=== PATIENT | female | born 1960 | race Caucasian/White ===

== ENCOUNTER 2017-12-08 20:24 | Emergency (ER) | payer MEDICAID, SELFPAY ==
[2017-12-08 20:26] VITALS: BP 208/108; PULSE 68; RESP 16; TEMP 35.6; O2SAT 98; BMI 27.1
[2017-12-08] MEDS: Ondansetron 4 MG/2 ML Vial IV (21:21)
[2017-12-08] MEDS: DiphenhydrAMINE 50 MG/ML Syringe 25 MG IV (21:21)
[2017-12-08] MEDS: Ketorolac 30 MG/ML Syringe IV (22:09)
[2017-12-08 22:12] VITALS: BP 151/83; PULSE 80; RESP 15; O2SAT 92
--- NOTE | 2017-12-08 23:10 | ED.VISSUMM ---
- ER Visit Summary Date of Service: 12/08/17 Chief Complaint: Acute headache History of Present Illness: The patient is a 57 F patient was undergoing stress tonight due to family issue. Her and her took a ride to relax. During the drive she had sudden onset of headache in her posterior area of her head. Associated nausea and vomiting. She is a history of migraine headaches but states this was more intense and seem to be more acute onset. She herself has never had an intracranial bleed nor is any family history. She is on no blood thinners. There is also no family history of any brain aneurysms. She denies any neurological symptoms. She denies any recent head trauma. Denies any fever or sinus congestion. Physical Examination: Middle-aged female vital signs are stable. Her initial blood pressure was 208/108. She is treated for hypertension. She is afebrile. She does not look septic or toxic. HEENT exam atraumatic. Pupils round reactive light. Extra motions are intact. No facial droop. Normal speech. Neck nontender. No lymphadenopathy. No meningismus. Able to touch chin to chest. Lungs clear to auscultation bilaterally. Heart regular rhythm no murmur. Abdomen soft nontender. She is moving all 4 extremities. They are neurovascularly intact. 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 Dorsi plantar flexion intact. Normal range of motion of both upper and lower extremities. Her neurologic exam is normal. Her NIH is 0. Fingertip to nose and heel to santiago all within normal limits. Back exam normal skin normal. Test Results: Due to the acute onset of her headache and her blood pressure she a CTA of the brain. No acute abnormality was noted this is read by the radiologist in [place]. No bleed or aneurysm is seen. Emergency Department Course and Treatment: Patient treated for her headache with IV fluids Zofran and Benadryl. She was getting some relief then was given IV Toradol. Treatment Plan: Repeat exam she is doing well at 2310. Neurologic exam is normal and her headache is much improved as is her blood pressure. Disposition: Discharge Impression: Acute cephalgia Acute on chronic hypertension Acute anxiety This note was generated with [employer] dictation software. It may contain incorrect words, spelling, and punctuation that were not noted in review of the chart prior to signing ED Disposition - Plan for ED Patient: Chief Complaint: Other, Pain/Inj Referrals: Mack Brooks MD [Primary Care Provider] -
--- NOTE | 2017-12-08 23:13 | ED.DCSUM_ITS ---
- ER Visit Summary Date of Service: 12/08/17 Chief Complaint: Acute headache History of Present Illness: The patient is a 57 F patient was undergoing stress tonight due to family issue. Her and her took a ride to relax. During the drive she had sudden onset of headache in her posterior area of her head. Associated nausea and vomiting. She is a history of migraine headaches but states this was more intense and seem to be more acute onset. She herself has never had an intracranial bleed nor is any family history. She is on no blood thinners. There is also no family history of any brain aneurysms. She denies any neurological symptoms. She denies any recent head trauma. Denies any fever or sinus congestion. Physical Examination: Middle-aged female vital signs are stable. Her initial blood pressure was 208/108. She is treated for hypertension. She is afebrile. She does not look septic or toxic. HEENT exam atraumatic. Pupils round reactive light. Extra motions are intact. No facial droop. Normal speech. Neck nontender. No lymphadenopathy. No meningismus. Able to touch chin to chest. Lungs clear to auscultation bilaterally. Heart regular rhythm no murmur. Abdomen soft nontender. She is moving all 4 extremities. They are neurovascularly intact. 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 Dorsi plantar flexion intact. Normal range of motion of both upper and lower extremities. Her neurologic exam is normal. Her NIH is 0. Fingertip to nose and heel to santiago all within normal limits. Back exam normal skin normal. Test Results: Due to the acute onset of her headache and her blood pressure she a CTA of the brain. No acute abnormality was noted this is read by the radiologist in [place]. No bleed or aneurysm is seen. Emergency Department Course and Treatment: Patient treated for her headache with IV fluids Zofran and Benadryl. She was getting some relief then was given IV Toradol. Treatment Plan: Repeat exam she is doing well at 2310. Neurologic exam is normal and her headache is much improved as is her blood pressure. Disposition: Discharge Impression: Acute cephalgia Acute on chronic hypertension Acute anxiety This note was generated with [employer] dictation software. It may contain incorrect words, spelling, and punctuation that were not noted in review of the chart prior to signing ED Disposition - Plan for ED Patient: Chief Complaint: Other, Pain/Inj Referrals: Mack Brooks MD [Primary Care Provider] -
--- NOTE | 2017-12-08 23:13 | ED.DEP ---
ED Disposition - Plan for ED Patient: Disposition: Home or Assisted Living Chief Complaint: Other, Pain/Inj Instructions: ED Cephalgia Unspecified Referrals: Mack Brooks MD [Primary Care Provider] - As Needed
[2017-12-08] MEDS: Rizatriptan Benzoate 10 MG Tablet PO (23:40)
[2017-12-08 23:41] VITALS: BP 144/66; PULSE 76; RESP 16; O2SAT 96
== END 2017-12-08 23:42 | disposition home or self-care (01) ==
PROVIDERS: Emergency Provider Emergency Medicine
DX: F41.1 Generalized anxiety disorder (principal); F43.0 Acute stress reaction; I10 Essential (primary) hypertension; R51 Headache
CPT/HCPCS: 70496; 96361; 96374; 96375; 99284; J7030; J7040; Q9967; A4216; J2405

== ENCOUNTER 2019-07-01 23:14 | Emergency (ER) | payer OTHER, SELFPAY ==
[2019-07-01 23:15] VITALS: BP 174/91; PULSE 82; RESP 18; TEMP 36.3; O2SAT 100; BMI 25.8
--- NOTE | 2019-07-01 23:41 | EKG12_ITS ---
Test Reason : SOB Blood Pressure : / mmHG Vent. Rate : 072 BPM Atrial Rate : 072 BPM P-R Int : 156 ms QRS Dur : 082 ms QT Int : 382 ms P-R-T Axes : 057 019 028 degrees QTc Int : 418 ms Normal sinus rhythm Nonspecific ST abnormality Abnormal ECG Confirmed by SAGRARIO RUIZ, TRINITY ([id number]), technical editor CARRIE JEAN ([id number]) on 07/03/2019 9:41:53 AM Referred By: NAREN Confirmed By:TRINITY ZABALA MD
--- NOTE | 2019-07-01 23:41 | RAD_ITS ---
STUDY: X-RAY CHEST REASON FOR EXAM: Female, 58 years old. INCREASED SOB TECHNIQUE: Single AP portable view of the chest. COMPARISON: None. FINDINGS: The lungs are clear and expanded. There is no demonstrated pleural abnormality. Normal size heart. Normal mediastinum and arnoldo. Normal visualized pulmonary arteries. Normal visualized aortic arch and descending thoracic aorta. Normal visualized thoracic spine. There is degenerative osteoarthritis of the bilateral shoulders. There is no demonstrated abnormality of the visualized soft tissue structures of the upper abdomen. RAD/Chest 1 View (Portable) IMPRESSION: Normal x-ray examination of the chest for age. Electronically Signed: Christiane Silva MD at 0:32 EDT , Service support ,
--- NOTE | 2019-07-01 23:44 | ED.RN ---
NO OLD EKGS IN MUSE
[2019-07-02] MEDS: 0.9% Normal Saline 1,000 ML 150 ML IV (00:09)
[2019-07-02] MEDS: MethylPREDNISolone 125 MG/2 ML Vial IV (00:09)
[2019-07-02 00:10] LABS: Absolute Lymphocyte Count 2.52 X10^3/uL (0.83-4.51); Absolute Neutrophil Count 2.8 X10^3/uL (2.0-7.7); Basophil# 0.06 X10^3/uL; Eosinophil# 0.23 X10^3/uL; Eosinophils% 3.7 % (0-5); Hematocrit 36.3 % (37-47); Hemoglobin 12.3 g/dL (12.0-15.0); Lymphocyte # 2.52 X10^3/ul (4.0); Lymphocyte % 40.6 % (19-41); Mean Corp Hgb Conc 33.9 g/dL (32-36); Mean Corpuscular Hgb 30.8 pg (27.0-32.0); Mean Corpuscular Volume 90.8 fL (81-99); Mean Platelet Vol. 10.3 fl (6.2-12.0); Monocyte# 0.59 X10^3/uL; Monocyte% 9.5 % (0-10); NRBC Flagged by Analyzer 0 % (0-5); Neutrophil # 2.78 X10^3/uL (2.7-7.7); Neutrophil % 44.9 % (47-70); Platelet Count 238 K/mm3 (150-450); RBC Distribution Width CV 12.4 % (11.6-14.6); RBC Distribution Width SD 40.1 fl (35.1-43.9); White Blood Count 6.2 K/mm3 (4.4-11.0)
[2019-07-02 00:27] LABS: Anion Gap 6 (5-15); BUN 21 mg/dL (7-18); BUN/Creat Ratio 27.2 RATIO (10-20); Calcium,Total 8.7 mg/dL (8.5-10.1); Chloride 107 mmol/L (98-107); Creatinine, Serum 0.77 mg/dL (0.55-1.02); EST Glomerular Filtration Rate 81 mL/min (>60); Est Glom Filt Rate - Afr Amer 98 mL/min (>60); Estimated Creatinine Clearance 73.64 ml/min; Glucose 98 mg/dL (74-106); Potassium 3.8 mmol/L (3.5-5.1); Sodium Level 140 mmol/L (136-145)
--- NOTE | 2019-07-02 00:34 | ED.DCSUM_ITS ---
- ER Visit Summary Date of Service: 07/02/19 Chief Complaint: Shortness of breath History of Present Illness: The patient is a [address] Brooks. She reports she has shortness of breath that began 2 days ago. States that it is intermittent episodes that last seconds at a time. She is not having it now. Is moderate at worst. Is worsened by nothing including exertion or laying flat. It is relieved by holding my arms up. She denies any cough. She has had subjective fever and chills. She denies any sick contacts. No recent travel. No ankle swelling or calf pain. No personal or family history of DVT. Patient denies any chest pain. She denies any palpitations. Physical Examination: Vitals: Stable. Afebrile. General: Well-nourished and well-developed. Head: Normocephalic atraumatic. Neck: Supple, no lymphadenopathy. No JVD. Nontender. Cardiovascular: Regular rate and rhythm. No murmurs. Respiratory: No respiratory distress. Clear to auscultation bilaterally. Abdominal: Soft, nontender, nondistended, normal bowel sounds. No guarding, rebound, or peritoneal signs. Back: Nontender. Extremities: Nontender, no edema. Skin: Normal color, no rash. Neurologic: Alert and oriented ?3. Cranial nerves II through XII are intact. Normal strength and sensation. Psych: Normal affect. Test Results: EKG is sinus at [address] changes. Troponin is negative. CBC shows hematocrit of 36.3 and segmented neutrophils of 45. Chem-7 shows a BUN of 21. Clinical Impression(s) from Imaging Studies Chest X-Ray 07/01/19 23:41 IMPRESSION: Normal x-ray examination of the chest for age. Electronically Signed: Christiane Silva MD at 0:32 EDT , Service support , Emergency Department Course and Treatment: Patient reports that she has had similar symptoms previously and they have always gotten better with steroids. She was given a dose of Solu-Medrol IV. Her symptoms are very atypical. She is not tachycardic or hypoxic. She denies any chest pain. She reports her sudden shortness of breath lasts seconds at a time. I feel that she is a suitable candidate for further outpatient evaluation. Treatment Plan: Patient will be discharged on a 5-day burst of prednisone. Instructed to follow with her primary care physician in 3 to 5 days if not im proving. Return to the emergency department for any worsening symptoms. Disposition: To home in improved and stable condition. Impression: 1. Dyspnea, uncertain cause. This note was generated with [employer] dictation software. It may contain incorrect words, spelling, and punctuation that were not noted in review of the chart prior to signing ED Disposition - Plan for ED Patient: Disposition: Home or Assisted Living Instructions: ED Dyspnea Prescriptions: Prednisone [Deltasone] 40 mg PO DAILY #10 tab Prescription Printed Referrals: Mack Brooks MD [Primary Care Provider] - 3-5 Days if not improving
[2019-07-02 00:41] VITALS: BP 152/91; PULSE 71; RESP 12; O2SAT 95
== END 2019-07-02 00:54 | disposition home or self-care (01) ==
LOC: ED 23:44
PROVIDERS: Emergency Provider Emergency Medicine
DX: R06.02 Shortness of breath (principal); I10 Essential (primary) hypertension; Z87.891 Personal history of nicotine dependence
CPT/HCPCS: 71045; 80048; 84484; 85025; 93005; 96361; 96374; 99284; J7030; A4216

== ENCOUNTER 2019-07-04 16:03 | Emergency (ER) | payer OTHER, SELFPAY ==
[2019-07-04 16:04] VITALS: BP 164/99; PULSE 77; RESP 16; TEMP 36.4; O2SAT 99; BMI 25.8
[2019-07-04 16:34] VITALS: O2SAT 99
--- NOTE | 2019-07-04 16:35 | ED.DCSUM_ITS ---
- ER Visit Summary Date of Service: 07/04/19 Chief Complaint: Subjective sensation of feeling short of breath History of Present Illness: The patient is a 58 F 3 of anxiety and hypertension. He is never had a DVT or PE. No recent travel, surgery or immobilization. Patient states she is having allergic reaction. She was seen the other day had a negative work-up. Also has been seen by her primary care physician yesterday who started her on prednisone. She is on blood pressure medication said that is never been a problem. She denies fever or chills. She denies cough. She denies chest pain. She denies rash or swelling. She also has symptoms of diffuse tingling. And feels like her intestines are swollen. Physical Examination: Middle-aged female no acute distress vital signs are stable afebrile. Her pulse ox is 99% on room air respiratory rate 16. She is speaking in full sentences no distress. H EENT exam normal. No swelling of her lips or tongue. No trouble swallowing or breathing. No stridor or drooling. Neck nontender no lymphadenopathy. Trachea midline lungs are to auscultation bilaterally. Heart regular rhythm no murmur. Abdomen soft nontender extremities moves all 4. Calves are nontender without edema or cords. Skin no rashes. Back nontender. Neurologically she is awake and alert. She does clinically seem to be anxious. Test Results: None. I reviewed the work-up the patient had the other day it was negative. Emergency Department Course and Treatment: Clinically this patient seems to be anxious. Her exam is normal. Her work-up from the other day is normal. This does not sound cardiac. She has no risk factors for DVT or PE. She is a normal exam. Should be treated with p.o. Benadryl due to her request and I think it also help her with her anxiety. And she will be discharged to home. Treatment Plan: Continue her current meds. Follow-up with her primary care physician. Return if worse. Disposition: Discharge Impression: Acute subjective dyspnea uncertain etiology Acute anxiety This note was generated with [employer] software. It may contain incorrect words, spelling, and punctuation that were not noted in review of the chart prior to signing ED Disposition - Plan for ED Patient: Referrals: Mack Brooks MD [Primary Care Provider] -
--- NOTE | 2019-07-04 16:37 | ED.DEP ---
ED Disposition - Plan for ED Patient: Disposition: Home or Assisted Living Instructions: ED Dyspnea Referrals: Mack Brooks MD [Primary Care Provider] - 3-5 Days if not improving Additional Instructions: Continue your current medications. If you think this is allergic reaction which not necessarily convinced of you can use your prednisone you Jatin on and Benadryl. Follow-up with your doctor if not improving return to the ER if you are feeling worse.
[2019-07-04] MEDS: DiphenhydrAMINE 25 MG Capsule PO (16:44)
[2019-07-04 17:05] VITALS: BP 161/101; PULSE 76; RESP 18; O2SAT 100
== END 2019-07-04 17:06 | disposition home or self-care (01) ==
PROVIDERS: Emergency Provider Emergency Medicine
DX: R06.02 Shortness of breath (principal); F41.9 Anxiety disorder, unspecified; I10 Essential (primary) hypertension; Z87.891 Personal history of nicotine dependence
CPT/HCPCS: 99283

== ENCOUNTER → 2020-02-06 08:53 | Outpatient (CLI) | payer OTHER, SELFPAY ==
--- NOTE | 2020-02-06 08:56 | US_ITS ---
STUDY: ULTRASOUND BREAST - RIGHT REASON FOR EXAM: Female, 59 years old. Right breast pain and swelling. TECHNIQUE: Axial and longitudinal images of the RIGHT breast were performed with a high resolution ultrasound transducer. # OF IMAGES: 45 COMPARISON: Comparison is made with prior mammograms an early infiltrate. FINDINGS: RIGHT Breast: The upper outer aspect of the right breast was examined by ultrasound. No sonographic abnormality is seen. A repeat sinogram for assessment of the inferior lateral aspect of the right breast will be obtained. US/Breast Limited Unilateral IMPRESSION: No sonographic modality is seen in the upper outer quadrant of the right breast in the area of swelling. The patient will be recalled for a repeat sonogram to assess the 4.3 mm nodule in the inferior lateral portion of the right breast. ASSESSMENT CATEGORY: BIRADS Category 0: Incomplete. Need additional imaging evaluation. A letter regarding these results will be sent to the patient by the facility within 30 days. Electronically Signed: Jony Gonzalez, at 14:34 EST , Service support ,
--- NOTE | 2020-02-06 08:57 | BI_ITS ---
MAMMOGRAPHY - BILATERAL DIAGNOSTIC REASON FOR EXAM: Female, 59 years old. Right breast swelling in the upper outer quadrant. PERTINENT HISTORY: Non-contributory. TECHNIQUE: Digital bilateral breast kb (3D mammographic acquisition) in the CC and MLO projections. 2-D mediolateral oblique (MLO) and craniocaudad (CC) views of both breasts were obtained. CAD: Full Field Digital Mammography with Computer Added Detection was performed. COMPARISON: Comparison is made with prior examination 04/22/2013. FINDINGS: Breast Composition: There are scattered areas of fibroglandular density. There are no dominant masses or suspicious calcifications. There is a 4.3 mm well-defined nodule in the slightly inferior lateral aspect of the right breast. Correlation with ultrasound is recommended. No other significant abnormalities are identified. BI/DIAG MAMM W/CAD, BILAT IMPRESSION: 4.3 mm well-defined nodule in the slightly inferior lateral aspect of the right breast. Correlation with ultrasound is recommended. ASSESSMENT CATEGORY: BIRADS Category 0: Incomplete. Need additional imaging evaluation. A letter regarding these results will be sent to the patient by the facility within 30 days. Approximately 10% of breast cancers are not detected by mammography. A normal mammogram should not delay biopsy of a clinically suspicious abnormality. Electronically Signed: Jony Gonzalez, at 10:48 EST , Service support ,
--- NOTE | 2020-02-06 09:33 | BD_ITS ---
STUDY: DUAL ENERGY X-RAY ABSORPTIOMETRY / DXA REASON FOR EXAM: Female, 59 years old. VICTIM ADVOCATE -- HX OF SMOKING IN PAST- OVER 20 YRS AGO QUIT -- HX OF TAKING PREDNISONE AFTER ALLERGIC REACTION -- DOES MODERATE AMOUNT OF EXERCISE -- ALLYN OF 1 INCH TECHNIQUE: Bone Mineral Density (BMD) measurements of lumbar spine and bilateral hips were obtained. COMPARISON: None. FINDINGS: Lumbar Spine (L1-L4): g/cm2 (1.392) / T-score (1.6) / Z-score (2.8) Findings are suggestive of normal bone density with a low fracture risk. Left Femur Total: g/cm2 (0.933) / T-score (-0.6) / Z-score (0.3) Left Femoral Neck: g/cm2 (0.898) / T-score (-1.0) / Z-score (0.2) Right Femur Total: g/cm2 (0.920) / T-score (-0.7) / Z-score (0.2) Right Femoral Neck: g/cm2 (0.872) / T-score (is 1.2) / Z-score (0.0) BD/Dexa Bone Density Study IMPRESSION: The patient is considered osteopenic as outlined below according to World Ricardo Organization (WHO) criteria with a low fracture risk. Reference Information: The T-score is the number of standard deviations above or below the standard which is normal for young adults at their peak bone mineral density. The World Health Organization (WHO) interprets the T-scores as follows: Above -1 Normal bone density Between -1 and -2.5 Osteopenia Equal to / or below -2.5 Osteoporosis As a practical clinical guideline, osteopenia may be graded as follows: Mild -1 through -1.5 Moderate -1.6 through -2.0 Severe -2.1 through -2.4 The Z-score is the number of standard deviations above or below age-matched controls. A Z-score of less than -1.5 would be considered abnormal. References: 1. NIH Osteoporosis and Related Bone Diseases www osteo.org 2. International Society for Clinical Densitometry www iscd.org 3. National Osteoporosis Foundation www nof.org Electronically Signed: Jony Gonzalez, at 15:50 EST , Service support ,
== END ==
PROVIDERS: Referring Provider Nurse Practitioner Family; Visit Provider Nurse Practitioner Family
DX: N63.10 Unspecified lump in the right breast, unspecified quadrant (principal); N64.4 Mastodynia; Z78.0 Asymptomatic menopausal state
CPT/HCPCS: 76642; 77062; 77066; 77080; G0279

== ENCOUNTER → 2020-02-13 10:48 | Outpatient (CLI) | payer OTHER, SELFPAY ==
--- NOTE | 2020-02-13 10:49 | US_ITS ---
STUDY: ULTRASOUND BREAST - RIGHT REASON FOR EXAM: Female, 59 years old. Abnormal screening mammogram. TECHNIQUE: Axial and longitudinal images of the RIGHT breast were performed with a high resolution ultrasound transducer. # OF IMAGES: 55 COMPARISON: Comparison is made with prior mammogram dated 02/06/2020. FINDINGS: RIGHT Breast: The lower outer quadrant of the right breast was examined by ultrasound. The mammographic abnormality corresponds to a 5 mm x 4 mm x 5 mm well-defined hypoechoic nodule with a central echogenic nidus suggestive of a benign-appearing lymph node. This is at the 7 o''clock position of the breast at 4 cm from the nipple. US/Breast Limited Unilateral IMPRESSION: Findings suggestive of a benign-appearing lymph node in the lower outer quadrant of the right breast. ASSESSMENT CATEGORY: BIRADS Category 2: Benign. A letter regarding these results will be sent to the patient by the facility within 30 days. Electronically Signed: Jony Gonzalez, at 12:46 EST , Service support ,
== END ==
PROVIDERS: Referring Provider Nurse Practitioner Family; Visit Provider Nurse Practitioner Family
DX: R92.8 Other abnormal and inconclusive findings on diagnostic imaging of breast (principal)
CPT/HCPCS: 76642

== ENCOUNTER 2021-07-13 08:47 | Day surgery (SDC) | payer OTHER, SELFPAY ==
[2021-07-13 09:15] VITALS: BP 152/74; PULSE 84; RESP 18; TEMP 36.5; O2SAT 100; BMI 20.9
[2021-07-13] MEDS: Lactated Ringers 1,000 ML 15 ML IV (09:30)
--- NOTE | 2021-07-13 10:36 | HP.PCM_ITS ---
HPI - General HPI Narrative DOROTHY CORRALES, is a 60 F who presents for screening colonoscopy. She denies any blood in her stool. She has no family history of colon cancer. She has never had a colonoscopy in the past. [facility] Medical History (Updated 07/09/21 @ 09:39 by Leydi Berrios) Anxiety Arthritis Cardiology follow-up encounter Dietary restriction Former smoker History of stress test Hypertension Migraine headache Home Medications inhalational spacing device 07/04/19 [History Last Taken Unknown] Electrolyte Powder 1 packet PO/SL DAILY 07/09/21 [History Last Taken Unknown] omega-3 fatty acids [Fish Oil] 1,000 mg PO DAILY 07/09/21 [History Last Taken 07/08/21] sennosides [Senna Lax] 8.6 mg PO DAILY 07/09/21 [History Last Taken Unknown] Allergy/AdvReac Type Severity Reaction Status Date / Time levofloxacin Allergy Severe Nausea/Vom/Diarrhea, Verified 07/13/21 09:14 Rash sulfamethoxazole Allergy Severe Rash, Verified 07/13/21 09:14 dizziness, stomach upset lisinopril Allergy Other Verified 07/13/21 09:14 aspirin AdvReac Upset Verified 07/13/21 09:14 Stomach Surgical History (Updated 07/09/21 @ 09:39 by Leydi Berrios) Hx of tonsillectomy Hx of tubal ligation Social History Smoking Status: Former smoker Past Medical/Surgical History Planned Operation Planned Operative Procedure/s: CSCOPE OA Previous Hospitalizations/Surgeries HX Hospitalizations: No Any Problems With Anesthesia: No You/Your Family Experience Fever (Hyperthermia) With Anes: No Cholinesterase deficiency: No Cardiovascular Hx Hypertension: Yes (NO MEDS FOR OVER 1 YR) Respiratory Hx Sleep Apnea: No Hx Respiratory Tract Infection/Cold (presently): No Do You Snore Loudly (louder than talking or can be heard): No Do You Often Feel Tired/ Fatigued/ Sleepy Dring Daytime?: No Has Anyone Observed You Stop Breathing During Sleep?: No Result (for STOP score): Negative Smoking Status: Former smoker Neurological Does patient have nerve stimulator: No Reproduction : No Miscellaneous Recent Exposure to Contagious Disease: No Allergies levofloxacin Allergy (Severe, Verified 07/13/21 09:14) Nausea/Vom/Diarrhea, Rash sulfamethoxazole Allergy (Severe, Verified 07/13/21 09:14) Rash, dizziness, stomach upset lisinopril Allergy (Verified 07/13/21 09:14) Other aspirin Adverse Reaction (Verified 07/13/21 09:14) Upset Stomach Discharge Is Pt Admitted From a [facility], or a Residential: No After D/C, Where Do you Plan to Go: Return Home Vital Signs Vital Signs Vital Signs: 07/13/21 09:15 Temperature 97.7 F L Temperature Source Temporal Pulse Rate 84 Respiratory Rate 18 Respiratory Pattern Normal Blood Pressure 152/74 H Blood Pressure Mean 100 Blood Pressure Source Monitor Blood Pressure Position Semi-Fowlers Blood Pressure Location Left Arm Pulse Ox 100 Oxygen Delivery Method Room Air Weight Weight: 125 lb 10.616 oz Body Mass Index (BMI) 20.9 Physical Exam Const alert and oriented x3 Resp normal respiratory effort and normal air movement Cardio regular rate and regular rhythm GI soft to palpation, non-tender and non-distended Assessment & Plan Assessment/Plan (1) Encounter for screening for malignant neoplasm of colon: PLAN: I explained endoscopy in detail to the patient. I explained the risks including but not limited to stroke or heart attack with anesthesia, perforation of the GI tract, bleeding, infection. I explained that any of these could necessitate further emergency surgery. The patient understands and all questions were answered sufficiently. The patient wishes to proceed with procedure. Db Muller MD Pager: [facility] [address] [place] [address], [address] [place] [address] Office: Surgery Risks - Colonoscopy Risks Include but are not Limited To: Risks include but are not limited to: Bleeding, perforation requiring further surgery, inability to complete colonoscopy requiring barium enema.
--- NOTE | 2021-07-13 11:02 | OP.CCLET_ITS ---
07/13/2021 Mack Brooks Re : Colonoscopy procedure for Bin Sánchez Dear Todd This procedure was performed on Tuesday, July 13, 2021. My impressions and recommendations are as follows: Impressions : - The entire examined colon is normal on direct and retroflexion views. - No specimens collected. Recommendations : - Discharge patient to home (ambulatory). - Resume previous diet. - Continue present medications. - Repeat colonoscopy in 10 years for screening purposes. My findings are described in the full procedure note, which is enclosed. If I can be of further assistance, please feel free to contact me at Doctor phone number(s): , Work: . Sincerely, Db Muller MD 07/13/2021 11:02:09 AM This report has been signed electronically.
--- NOTE | 2021-07-13 11:02 | OP.COLON_ITS ---
Patient Name: Bin Sánchez Procedure Date: 07/13/2021 10:42 AM Date of : 1960 Age: 60 Procedure: Colonoscopy Indications: Screening for colorectal malignant neoplasm Providers: Db Muller MD Referring MD: Mack Brooks Medicines: Monitored Anesthesia Care Patient Profile: This is a 60 year old female. Refer to note in patient chart for documentation of history and physical. Last Colonoscopy: none. The patient's first colonoscopy is today. Complications: No immediate complications. Procedure: Pre-Anesthesia Assessment: - Prior to the procedure, a History and Physical was performed, and patient medications and allergies were reviewed. The patient's tolerance of previous anesthesia was also reviewed. The risks and benefits of the procedure and the sedation options and risks were discussed with the patient. All questions were answered, and informed consent was obtained. Prior Anticoagulants: The patient has taken no previous anticoagulant or antiplatelet agents. After reviewing the risks and benefits, the patient was deemed in satisfactory condition to undergo the procedure. After I obtained informed consent, the scope was passed under direct vision. Throughout the procedure, the patient's blood pressure, pulse, and oxygen saturations were monitored continuously. The colonoscope was introduced through the anus and advanced to the cecum, identified by appendiceal orifice and ileocecal valve. The colonoscopy was performed without difficulty. The patient tolerated the procedure well. The quality of the bowel preparation was good. Scope In: 10:47:13 AM Scope Withdrawal Time 0 hours 6 minutes 13 seconds Scope Out: 11:00:56 AM Total Procedure Duration Time 0 hours 13 minutes 43 seconds Findings: The entire examined colon appeared normal on direct and retroflexion views. Impression: - The entire examined colon is normal on direct and retroflexion views. - No specimens collected. Recommendation: - Discharge patient to home (ambulatory). - Resume previous diet. - Continue present medications. - Repeat colonoscopy in 10 years for screening purposes. Procedure Code(s): --- Professional --- 17728, Colonoscopy, flexible; diagnostic, including collection of specimen(s) by brushing or washing, when performed (separate procedure) Diagnosis Code(s): --- Professional --- Z12.11, Encounter for screening for malignant neoplasm of colon CPT copyright 2017 [employer]. All rights reserved. The codes documented in this report are preliminary and upon flower machine operator review may be revised to meet current compliance requirements. Db Muller MD 07/13/2021 11:02:09 AM This report has been signed electronically. Number of Addenda: 0 Note Initiated On: 07/13/2021 10:42 AM
[2021-07-13 11:05] VITALS: BP 152/74; BP 96/48; PULSE 73; RESP 16; TEMP 37.2; O2SAT 100
[2021-07-13 11:10] VITALS: BP 105/45; BP 152/74; PULSE 64; RESP 16; O2SAT 100
[2021-07-13 11:15] VITALS: BP 108/69; BP 152/74; PULSE 63; RESP 16; O2SAT 100
[2021-07-13 11:20] VITALS: BP 125/71; BP 152/74; PULSE 63; RESP 16; TEMP 36.7; O2SAT 100
[2021-07-13 11:39] VITALS: BP 152/74
== END 2021-07-13 23:59 | disposition home or self-care (01) ==
LOC: EN 08:49 → AC 08:49
PROVIDERS: Visit Provider Surgery
PROC: 0DJD8ZZ Inspection of Lower Intestinal Tract, Via Natural or Artificial Opening Endoscopic (ICD-10-PCS; CPT 45378; principal; 2021-07-13 09:55)
DX: Z12.11 Encounter for screening for malignant neoplasm of colon (principal); Z87.891 Personal history of nicotine dependence; Z20.822 Contact with and (suspected) exposure to COVID-19
CPT/HCPCS: 45378; 87426; C9803; J7120

== ENCOUNTER → 2021-07-20 | Outpatient (CLI) | payer OTHER, SELFPAY ==
--- NOTE | 2021-07-20 14:02 | BI_ITS ---
MAMMOGRAPHY - BILATERAL SCREENING 3-D TOMOSYNTHESIS REASON FOR EXAM: Female, 60 years old. SCREENING PERTINENT HISTORY: No significant family history. TECHNIQUE: 2-D mammograms and 3-D Tomosynthesis of the breast (s) were performed. CAD was performed. COMPARISON: None. FINDINGS: The breast composition is composed of scattered fibroglandular density. Scattered benign calcifications are seen. No dense spiculated masses or suspicious microcalcifications are identified. No architectural distortion is identified. There is no skin thickening or retraction. There has been no significant change since the prior study. BI/SCRN MAMM (CAD)W/RELL BILAT IMPRESSION: No mammographic signs of malignancy. Routine yearly mammograms recommended. ASSESSMENT CATEGORY: BIRADS Category 1: Negative. A letter regarding these results will be sent to the patient by the facility within 30 days. FOLLOW UP RECOMMENDATION: Yearly follow up mammogram recommended. (A) Approximately 10% of breast cancers are not detected by mammography. A normal mammogram should not delay biopsy of a clinically suspicious abnormality. Electronically Signed: Pedro Ponce MD at 15:27 EDT ,
== END | disposition home or self-care (01) ==
LOC: OPBI 13:59
DX: Z12.31 Encounter for screening mammogram for malignant neoplasm of breast (principal)
CPT/HCPCS: 77063; 77067

== ENCOUNTER → 2022-07-28 | Outpatient (CLI) | payer OTHER, SELFPAY ==
--- NOTE | 2022-07-28 10:46 | BI_ITS ---
MAMMOGRAPHY - BILATERAL SCREENING REASON FOR EXAM: Female, 61 years old. Routine annual screening examination. PERTINENT HISTORY: Non-contributory. TECHNIQUE: Digital bilateral breast rell (3D mammographic acquisition) in the CC and MLO projections. 2-D mediolateral oblique (MLO) and craniocaudad (CC) views of both breasts were obtained. CAD: Full Field Digital Mammography with Computer Added Detection was performed. COMPARISON: Comparison is made with prior study July 20, 2021 and February 06, 2020 FINDINGS: Breast Composition: There are scattered areas of fibroglandular density. There are no dominant masses or suspicious calcifications. Stable small benign-appearing bilateral axillary lymph nodes. No other significant abnormalities are identified. There has been no significant change since the prior study. BI/SCRN MAMM (CAD)W/RELL BILAT IMPRESSION: Stable bilateral screening mammogram. Yearly follow-up mammogram recommended. (A) ASSESSMENT CATEGORY: BIRADS Category 2: Benign. A letter regarding these results will be sent to the patient by the facility within 30 days. Approximately 10% of breast cancers are not detected by mammography. A normal mammogram should not delay biopsy of a clinically suspicious abnormality. [id number] Electronically Signed: Jony Gonzalez MD at 11:52 EDT ,
== END | disposition home or self-care (01) ==
DX: Z12.31 Encounter for screening mammogram for malignant neoplasm of breast (principal)
CPT/HCPCS: 77063; 77067

== ENCOUNTER → 2023-07-17 | Outpatient (CLI) | payer OTHER, SELFPAY ==
--- NOTE | 2023-07-17 06:56 | CT_ITS ---
ACR Level 3 findings have been noted. An addendum which confirms receipt of the report will follow. INDICATION: LUQ ABD PAIN EXAMINATION: CT Abdomen W/ Contrast Injection TECHNIQUE: Helically acquired images were obtained of the abdomen and pelvis after IV contrast. A radiation dose optimization technique was used for this scan. IV Contrast dosage and agent: Oral and amp; IV Readi-CAT and amp; 100mL [id number] Oral contrast: None. COMPARISON: None. FINDINGS: Visualized lung bases: 1.8 x 1.7 cm irregularly-shaped masslike density in the right lower lobe (image 3, series 2). Liver: Unremarkable Gallbladder: Unremarkable Spleen: Unremarkable Pancreas: Unremarkable Adrenal Glands: Unremarkable Kidneys: Unremarkable Vasculature: Mild scattered aortoiliac atherosclerotic calcifications. GI Tract: Mild circumferential gastric wall thickening. Lymphadenopathy: None Peritoneum: No ascites. Bladder: Unremarkable Reproductive organs: Unremarkable Bones/Soft tissues: No suspicious osseous or soft tissue lesions CT/Abdomen WITH IV Contrast IMPRESSION: Mild circumferential gastric wall thickening could represent gastritis in the correct clinical setting. Cannot rule out malignancy. 2 cm irregularly-shaped masslike density in the right lower lobe is indeterminate. Differential includes atypical infection and pulmonary AVM as well as other etiologies such as malignancy. Recommend CTA Chest for further evaluation. Electronically Signed: Renaldo Martinez MD at 17:26 EDT ,
[2023-07-17 07:19] LABS: CREATININE FINGERSTICK < 1.0 mg/dL (0.55-1.02); EGFR FINGERSTICK > 60.0000 mL/min (>60)
== END | disposition home or self-care (01) ==
PROVIDERS: PCP Nurse Practitioner Family; Referring Provider Nurse Practitioner Family; Visit Provider Nurse Practitioner Family
DX: R10.84 Generalized abdominal pain (principal); R74.8 Abnormal levels of other serum enzymes
CPT/HCPCS: 74160; Q9967